=== PATIENT | male | born 1945 | race Caucasian/White ===

== ENCOUNTER → 2016-09-19 | Outpatient (CLI) | payer SELFPAY ==
--- NOTE | 2016-09-19 20:09 | MR ---
EXAMINATION TYPE: MR brain wo con DATE OF EXAM: 09/19/2016 COMPARISON: NONE HISTORY: Vague olfactory sensation and gradual loss of or change in smell TECHNIQUE: Multiplanar, multisequence images of the brain and brainstem is performed without intravenous contras t. FINDINGS: Olfactory nerves are symmetric and unremarkable. No adjacent signal abnormality are mass ef fect is seen. Diffusion weighted images demonstrate no evidence of a recent infarct or other diffusion abnormality. There is no extra-axial fluid collection. Scattered nonspecific T2/FLAIR hyperintense foci are seen within the subcortical and periventricular white matter. Intracranial flow voids are intact. The paul tricular system and cisternal spaces are normal in size and appearance. The brain volume is age appr opriate. Midline structures demonstrate normal morphology. The craniocervical junction appears within normal limits. The dural venous sinuses appear patent. Scant mucosal thickening is seen within the ethmoid sinuses. The remaining visualized sinuses are clear and the globes are intact. A small amount of flui d is present within the mastoid air cells on the left. Right mastoid air cells are well aerated. IMPRESSION: 1. Normal morphology of the unenhanced olfactory nerves in their visualized portions. No adjacent sig nal abnormality or mass effect. 2. 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 3. Scant mucosal thickening within the ethmoid sinuses and small amount of fluid within the left mast oid air cells.
== END | disposition home or self-care (01) ==
LOC: RADMRIMAIN 19:09
DX: I73.9 Peripheral vascular disease, unspecified (principal); R90.82 White matter disease, unspecified; R43.0 Anosmia
CPT/HCPCS: 70551